=== PATIENT | male | born 1975 | race Caucasian/White ===

== ENCOUNTER 2017-11-10 13:19 | Emergency (ER) | payer OTHER ==
[~2017-11-10] VITALS: Ht 182.8 cm; Wt 104.3 kg
[~2017-11-10 13:19] MED LIST: LOMOCOT 0.025 M1 TAB PO
[2017-11-10] MEDS ORDERED: NAPROSYN500 MG PO (13:34)
[2017-11-10] MEDS ORDERED: CYCLOBENZAPRINE10 MG PO (13:34)
== END 2017-11-10 15:00 | disposition home or self-care (01) ==
LOC: ED 13:19
DX: M43.6 Torticollis (principal)

== ENCOUNTER → 2020-10-22 | Outpatient (CLI) | payer BC ==
[~2020-10-22] MED LIST changes: +CYCLOBENZAPRINE10 MG PO; +IBU800 MG PO; +NAPROSYN500 MG PO
== END | disposition home or self-care (01) ==
LOC: COVID19 08:44
PROVIDERS: ATTEND Nurse Practitioner
DX: Z20.828 Contact with and (suspected) exposure to other viral communicable diseases (principal)

== ENCOUNTER 2022-10-28 14:14 | Emergency (ER) | payer BC ==
[~2022-10-28] VITALS: Wt 104.3 kg
[2022-10-28 14:52] LABS: BASO % 0.4 % (0.0-1.0); EOS # 0.2 10*3/uL (0.0-0.4); EOS % 2.4 % (1.0-4.0); HEMATOCRIT 46.5 % (42.0-52.0); LYMPH # 1.7 10*3/uL (1.3-4.4); LYMPH % 23.2 % (27.0-41.0); MEAN CELL VOLUME 86.9 fl (80.0-94.0); MEAN CORPUSCULAR HGB 30.1 pg (27.0-31.0); MEAN CORPUSCULAR HGB CONC 34.6 g/dl (33.0-37.0); MEAN PLATELET VOLUME 10.5 fl (9.6-12.3); MONO # 0.5 10*3/uL (0.1-1.0); MONO % 6.5 % (3.0-9.0); NEUT # 4.7 10*3/uL (2.3-7.9); NEUT % 66.5 % (47.0-73.0); PLATELET COUNT AUTOMATED 179 10*3/uL (130-400); RED BLOOD COUNT 5.35 10*6/uL (4.50-5.90); RED CELL DISTRI WIDTH 12.1 % (0-14.5); WHITE BLOOD COUNT 7.1 10*3/uL (4.8-10.8)
[2022-10-28 15:04] LABS: ACT PARTIAL THROMBO TIME 26.6 SECONDS (20.0-32.1)
[2022-10-28 15:12] LABS: LIPASE 50 U/L (12-53)
[2022-10-28 15:15] LABS: ALKALINE PHOSPHATASE 83 U/L (46-116); BUN 10 mg/dl (9-23); CHLORIDE 103 mmol/L (98-107); CREATININE 0.94 mg/dL (0.70-1.30); SGPT/ALT 47 U/L (10-49); SODIUM 138 mmol/L (136-145)
[2022-10-28 15:16] LABS: TOTAL PROTEIN 7.3 gm/dL (6.0-8.0)
[2022-10-28] MEDS ORDERED: PEPCID20 MG PO (17:02)
== END 2022-10-28 17:07 | disposition home or self-care (01) ==
LOC: ED 14:14
PROVIDERS: Emergency Medicine
DX: R07.9 Chest pain, unspecified (principal); K21.9 Gastro-esophageal reflux disease without esophagitis